=== PATIENT | female | born 1960 | race Two or more races ===

== ENCOUNTER 2019-10-04 13:19 | Emergency (ER) | payer OTHER ==
[~2019-10-04] VITALS: Ht 160 cm; Wt 69.9 kg
[2019-10-04] MEDS ORDERED: SYNT (13:43)
[2019-10-04] MEDS ORDERED: [UNRECOGNIZED DRUG - REMARK] (13:44)
[2019-10-04] MEDS ORDERED: CRESTOR5 MG (14:27)
[2019-10-04] MEDS ORDERED: CIPRO500 MG PO (14:31)
== END 2019-10-04 14:42 | disposition home or self-care (01) ==
LOC: ER 13:19
DX: S61.422A Laceration with foreign body of left hand, initial encounter (principal); W45.8XXA Other foreign body or object entering through skin, initial encounter; Y93.89 Activity, other specified; Y92.89 Other specified places as the place of occurrence of the external cause; Y99.8 Other external cause status

== ENCOUNTER 2019-10-10 11:53 | Emergency (ER) | payer OTHER ==
[~2019-10-10] VITALS: Ht 160 cm; Wt 69.9 kg
[~2019-10-10 11:53] MED LIST: CIPRO500 MG PO; CRESTOR5 MG; SYNT; [UNRECOGNIZED DRUG - REMARK]
[2019-10-10] MEDS ORDERED: LEVO-T50 MCG PO (12:06)
[2019-10-10] MEDS ORDERED: PREMARIN30 GM (12:06)
== END 2019-10-10 14:57 | disposition home or self-care (01) ==
LOC: ER 11:53
DX: Z48.02 Encounter for removal of sutures (principal)

== ENCOUNTER 2021-01-27 14:08 | Emergency (ER) | payer OTHER ==
[~2021-01-27] VITALS: Ht 160 cm; Wt 65.3 kg
[~2021-01-27 14:08] MED LIST changes: +LEVO-T50 MCG PO; +PREMARIN30 GM
[2021-01-27] MEDS ORDERED: FORTAMET500 MG PO (14:27)
[2021-01-27] MEDS ORDERED: VASOTEC2.5 MG PO (14:27)
== END 2021-01-27 18:30 | disposition home or self-care (01) ==
LOC: ER 14:08
DX: S39.92XA Unspecified injury of lower back, initial encounter (principal); S09.8XXA Other specified injuries of head, initial encounter; F41.8 Other specified anxiety disorders; R46.89 Other symptoms and signs involving appearance and behavior; Y04.2XXA Assault by strike against or bumped into by another person, initial encounter; Y92.89 Other specified places as the place of occurrence of the external cause